=== PATIENT | male | born 1970 | race Caucasian/White ===

== ENCOUNTER 2017-11-01 17:13 | Emergency (ER) | payer MEDICAID ==
--- NOTE | 2017-11-01 17:55 | EDPHY ---
H & P Time Seen by Provider: 11/01/17 17:52 HPI/ROS: CHIEF COMPLAINT: The patient is a 46-year-old male here with 4 days of low back pain HISTORY OF PRESENT ILLNESS: 46-year-old male with no significant past medical history here with chief complaint of low back pain that has worsened over the last 4 days. 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 He did not fall but did report instant pain to the low back. It did not radiate at the time. He saw his primary care doctor the next day was started on muscle relaxers and pain medication. He is also started on prednisone. He has developed severe pain down his right leg and the pain is not improved with prednisone, tramadol, Flexeril, Valium. Denies loss control of bladder but does report 1 episode of incontinence of stool yesterday while driving in his car. This has never happened to him before. He states he was unable to control his bowels at the time. He denies any perianal numbness or weakness in his legs. Reports he is able to walk but this is painful. REVIEW OF SYSTEMS: Constitutional: No fever, no chills. Eyes: No discharge. ENT: No sore throat. Cardiovascular: No chest pain, no palpitations. Respiratory: No cough, no shortness of breath. Gastrointestinal: No abdominal pain, no vomiting. Genitourinary: No hematuria. Musculoskeletal: No back pain. Skin: No rashes. Neurological: No headache Smoking Status: Never smoked Physical Exam: General Appearance: Alert and no distress. Eyes: Pupils equal and round no injection. Respiratory: Chest is nontender, lungs are clear to auscultation. Cardiac: regular rate and rhythm. Gastrointestinal: Abdomen is soft and nontender, no masses, bowel sounds normal. Musculoskeletal: Neck is supple and nontender. Extremities have full range of motion and are nontender. Normal sensation and deep tendon reflexes in lower extremities Skin: No rashes or lesions. Constitutional: Initial Vital Signs Temperature (C) 36.4 C 11/01/17 17:15 Heart Rate 90 11/01/17 17:15 Respiratory Rate 16 11/01/17 17:15 Blood Pressure 112/92 H 11/01/17 17:15 O2 Sat (%) 96 11/01/17 17:15 O2 Delivery Mode Room Air Allergies/Adverse Reactions: No Known Allergies Allergy (Unverified 11/01/17 17:19) Home Medications: Medication Instructions Recorded Albuterol Sulfate [Proair Hfa] 8.5 gm IH 11/01/17 Cyclobenzaprine [Flexeril 10 MG 10 mg PO 11/01/17 (*)] Diazepam [Valium 5 MG (*)] 5 mg PO 11/01/17 Hydrocodone/APAP 5/325 [[place] 1 each PO Q6 #8 tab 11/01/17 5/325 (*)] Lidocaine [Lidoderm] 700 mg TP PRN PRN #1 adh..patch 11/01/17 PARoxetine HCL [Paxil 10mg (*)] 10 mg PO DAILY 11/01/17 predniSONE 5 mg PO 11/01/17 traMADol [Ultram 50 mg (*)] 50 mg PO 11/01/17 Medical Decision Making - Diagnostics Imaging Results: Imaging Impressions Lumbar Spine MRI 11/01/17 17:39 Impression: 1. Negative for compression of the conus medullaris and there is no canal stenosis to suggest cauda equina syndrome. 2. Disk degenerative changes and a mild disk bulge and minimal subligamentous disk herniation towards the right at L3-L4 with mild impingement on the lateral recess. 3. See above report for findings at specific levels. Results called to Ben PETERSON on 11/01/2017 at 18:53. ED Course/Re-evaluation: Patient here with pain radiating down the right leg after sudden movement approximately 1 week ago. There was concern for cauda equina as he did have incontinence of stool yesterday. MRI reveals bulging disc which explains his radicular pain. Patient will continue his medical regimen and follow up with Spine or neurosurgeon if he has continued pain. Patient is agreeable with this plan. Differential Diagnosis: Cauda equina, fracture, ligamentous instability, or epidural abscess - Data Points Laboratory Results: Laboratory Results 11/01/17 18:35 11/01/17 18:35 11/01/17 11/01/17 18:35 18:35 WBC 12.88 10^3/uL H 10^3/uL (3.80-9.50) RBC 4.57 10^6/uL 10^6/uL (4.40-6.38) Hgb 13.4 g/dL L g/dL (13.7-17.5) Hct 38.5 % L % (40.0-51.0) MCV 84.2 fL fL (81.5-99.8) MCH 29.3 pg pg (27.9-34.1) MCHC 34.8 g/dL g/dL (32.4-36.7) RDW 12.6 % % (11.5-15.2) Plt Count 204 10^3/uL 10^3/uL (150-400) Sodium 135 mEq/L mEq/L (135-145) Potassium 4.1 mEq/L mEq/L (3.3-5.0) Chloride 107 mEq/L mEq/L (97-110) Carbon Dioxide 26 mEq/l mEq/l (22-31) Anion Gap 2 mEq/L L mEq/L (8-16) BUN 13 mg/dL mg/dL (7-23) Creatinine 0.9 mg/dL mg/dL (0.7-1.3) Estimated GFR > 60 Glucose 104 mg/dL H mg/dL (70-100) Calcium 8.8 mg/dL mg/dL (8.5-10.4) Departure - Departure Disposition: Home, Routine, Self-Care Clinical Impression: Bulging lumbar disc, Lumbar radiculopathy, acute Condition: Good Instructions: Lumbar Radiculopathy (ED) Additional Instructions: Please follow up with her primary care physician in next 5-7 days if you do not have improvement of her symptoms. Referrals: ZULEYKA BAXTER [Primary Care Provider] - As per Instructions Prescriptions: Hydrocodone/APAP 5/325 [[place] 5/325 (*)] 1 each PO Q6 #8 tab Lidocaine [Lidoderm] 700 mg TP PRN PRN #1 adh..patch PRN Reason: *Pain, Inflammatory
[2017-11-01] MEDS ORDERED: GADOBUTROL 10 ML VIAL IVP ONE (17:57)
[2017-11-01 19:26] VITALS: BP 134/77
== END 2017-11-01 19:25 | disposition home or self-care (01) ==
DX: M51.26 Other intervertebral disc displacement, lumbar region (principal); M54.16 Radiculopathy, lumbar region
CPT/HCPCS: A9585

== ENCOUNTER 2018-03-24 20:08 | Emergency (ER) | payer MEDICAID ==
[2018-03-24 20:29] VITALS: BP 139/94
--- NOTE | 2018-03-24 20:37 | EDPHY ---
H & P Time Seen by Provider: 03/24/18 20:30 HPI/ROS: HPI Tooth pain. 47-year-old male by private vehicle. This patient reports that he has a chipped right lower tooth that has been causing him pain since February. He reports that it has gotten worse over the last several days. He was skiing over the weekend when the pain really increased. He reports that he called his dentist his dentist prescribed amoxicillin and he is scheduled for a root canal tomorrow. He presents to the emergency department complaining of pain that is uncontrolled with ibuprofen. He has not had a fever. He denies any facial swelling. No other complaints. ROS: Constitutional: No fever, no chills. No weakness. Eyes: No discharge. No changes in vision. ENT: No sore throat. No nasal congestion or rhinorrhea. As above. Musculoskeletal: No back pain. No neck pain. As above. Skin: No rashes. Neurological: No headache. No focal weakness or altered sensation. Past medical history: Anxiety, depression, asthma. Social history: Nonsmoker. No alcohol. Here by himself. Physical Exam: General Appearance: Alert, no distress. This patient is responding to questions appropriately and in full sentences. This patient appears well- hydrated and well-nourished. Eyes: Pupils equal and round no pallor or injection. No lid edema, erythema or injection. ENT, Mouth: Mucous membranes are moist. The pharyngeal tissues are unremarkable. No edema or swelling. No asymmetry suggestive of abscess. No erythema or exudates. He has a chipped right lower premolar. There is no significant gingival swelling. He does have some pain elicited on apical compression of the tooth. No purulent drainage. No acute dental trauma. No facial swelling or swelling of the buccal mucosa noted. No elevation of the tongue. No voice changes. No stridor on auscultation of his neck. Neurological: Motor sensory function is grossly intact. Cranial nerves are normal. Gait is normal. Skin: Warm and dry, no rashes. Musculoskeletal: Neck is supple and nontender. No cervical, submandibular, submental lymphadenopathy. Extremities are symmetrical. All joints range without pain or impingement. Psychiatric: No agitation. No depression. Database: EKG: Imaging: Procedures: Emergency department course: Triage vital signs reviewed and are unremarkable. Patient verbally consented for inferior alveolar nerve block on the right side. 2 cc of bupivacaine without epinephrine injected at the mandibular sulcus on the inner surface of the ramus. Patient had excellent relief of his pain. There were no complications during this procedure. The patient feels comfortable going home. I will send him home with a take-home pack of Vicodin as well for breakthrough pain later tonight and to get him through until he can have his root canal tomorrow. Return to emergency department precautions reviewed with him. All of his questions were answered. He was discharged in good condition. Differential Diagnosis: The differential diagnosis on this patient includes but is not limited to dental pain, apical abscess. Acute dental trauma, dry socket, osteomyelitis, Ronen's angina, facial cellulitis unlikely. This represents a partial list of diagnoses considered. These considerations are based on history, physical exam , past history, reassessment and diagnostic testing. Smoking Status: Never smoked Constitutional: Initial Vital Signs Temperature (C) 36.5 C 03/24/18 20:20 Heart Rate 73 03/24/18 20:20 Respiratory Rate 16 03/24/18 20:20 Blood Pressure 139/94 H 03/24/18 20:20 O2 Sat (%) 95 03/24/18 20:20 O2 Delivery Mode Room Air Allergies/Adverse Reactions: No Known Allergies Allergy (Verified 03/24/18 20:24) Home Medications: Medication Instructions Recorded Albuterol Sulfate [Proair Hfa] 8.5 gm IH 11/01/17 PARoxetine HCL [Paxil 10mg (*)] 10 mg PO DAILY 11/01/17 Departure - Departure Disposition: Home, Routine, Self-Care Clinical Impression: Toothache Condition: Good Instructions: Toothache (ED) Additional Instructions: Read and follow provided instructions. Follow-up with your dentist as scheduled tomorrow for definitive management. Ibuprofen dosin mg every 6 hours with meals for the next 3 days only. Take only as needed for pain. Narcotic pain medication dosin-2 every 4-6 hours as needed for pain. Do not drive while on this medication. Return to the emergency department for worsening or uncontrolled pain, facial swelling, fever or other serious concerns. Referrals: Woodrow Foy MD [Primary Care Provider] - As per Instructions Stand Alone Forms: Work Excuse
[2018-03-24] MEDS ORDERED: HYDROCOD/APAP 5/325 PREPACK#6 BTL TAKEHOME ONE (20:38)
== END 2018-03-24 20:50 | disposition home or self-care (01) ==
LOC: CED 20:08
PROC: 3E0X3BZ Introduction of Anesthetic Agent into Cranial Nerves, Percutaneous Approach (ICD-10-PCS; principal; 2018-03-24)
DX: K08.89 Other specified disorders of teeth and supporting structures (principal)

== ENCOUNTER 2018-07-20 09:44 | Emergency (ER) | payer MEDICAID ==
--- NOTE | 2018-07-20 10:03 | EDPHY ---
H & P Stated Complaint: [facility]/ski inj yested[place] Time Seen by Provider: 07/20/18 09:55 HPI/ROS: CHIEF COMPLAINT: Right shoulder pain HISTORY OF PRESENT ILLNESS: The patient is a 47-year-old man who states that he fell skiing yesterday. He landed on the anterior aspect of his right shoulder with his arm at his side. He has had pain ever since. He does not think that was dislocated. He presented to the urgent care this morning or an x -ray was done in whose felt to have a shoulder dislocation referred here to the ER. He was placed in a sling. He denies other injuries. No neck pain. Severity: Mild Modifying factors: Improved with sling REVIEW OF SYSTEMS: Constitutional: denies: chills, fever, recent illness, recent injury EENTM: denies: blurred vision, double vision, nose congestion Respiratory: denies: cough, shortness of breath Cardiac: denies: chest pain, irregular heart rate, lightheadedness, palpitations Gastrointestinal/Abdominal: denies: abdominal pain, diarrhea, nausea, vomiting, blood streaked stools Genitourinary: denies: dysuria, frequency, hematuria, pain Musculoskeletal: See HPI Skin: denies: lesions, rash, jaundice, bruising Neurological: denies: headache, numbness, paresthesia, tingling, dizziness, weakness Hematologic/Lymphatic: denies: blood clots, easy bleeding, easy bruising Immunologic/allergic: denies: HIV/AIDS, transplant 10 systems reviewed and negative except as noted EXAM: GENERAL: Well-appearing, well-nourished and in no acute distress. HEAD: Atraumatic, normocephalic. EYES: Pupils equal round and reactive to light, extraocular movements intact, sclera anicteric, conjunctiva are normal. ENT: TMs normal, nares patent, oropharynx clear without exudates. Moist mucous membranes. NECK: Normal range of motion, supple without lymphadenopathy or JVD. LUNGS: Breath sounds clear to auscultation bilaterally and equal. No wheezes rales or rhonchi. HEART: Regular rate and rhythm without murmurs, rubs or gallops. ABDOMEN: Soft, nontender, normoactive bowel sounds. No guarding, no rebound. No masses appreciated. BACK: No CVA tenderness, no spinal tenderness, step-offs or deformities EXTREMITIES: Right shoulder pain, some limited range of motion due to pain. No step-off or deformity. No paresthesias numbness or weakness. NEUROLOGICAL: Cranial nerves II through XII grossly intact. Normal speech, normal gait. 5/5 strength, normal movement in all extremities, normal sensation , normal reflexes PSYCH: Normal mood, normal affect. SKIN: Warm, dry, normal turgor, no visible rashes or lesions. Source: Patient Exam Limitations: No limitations - Personal History Current Tetanus Diphtheria and Acellular Pertussis (TDAP): Yes - Medical/Surgical History Hx Asthma: Yes Hx Chronic Respiratory Disease: No Hx Diabetes: No Hx Cardiac Disease: No Hx Renal Disease: No Hx Cirrhosis: No Hx Alcoholism: No Hx HIV/AIDS: No Hx Splenectomy or Spleen Trauma: No Other PMH: anxiety, depression, asthma. lap band - Family History Significant Family History: No pertinent family hx - Social History Smoking Status: Never smoked Constitutional: Initial Vital Signs Temperature (C) 36.6 C 07/20/18 09:48 Heart Rate 77 07/20/18 09:48 Respiratory Rate 16 07/20/18 09:48 Blood Pressure 135/91 H 07/20/18 09:48 O2 Sat (%) 98 07/20/18 09:48 O2 Delivery Mode Room Air Allergies/Adverse Reactions: No Known Allergies Allergy (Verified 07/20/18 09:48) Home Medications: Medication Instructions Recorded Albuterol Sulfate [Proair Hfa] 8.5 gm IH 11/01/17 PARoxetine HCL [Paxil 10mg (*)] 10 mg PO DAILY 11/01/17 Hydrocodone/APAP 5/325 [[place] 1 - 2 tab PO Q4H PRN #10 tab 07/20/18 5/325 (RX)] Medical Decision Making ED Course/Re-evaluation: I reviewed the x-rays and the radiology reading done at the urgent care. The patient does not have a shoulder dislocation. He has a possible glenoid fossa fracture. It is not displaced. Discussed which includes sling and pain control and follow up with Orthopedics. He is happy with this and declines further workup or testing at this time. Differential Diagnosis: Partial list of the Differential diagnosis considered include but were not limited to; shoulder dislocation, AC separation, fracture and although unlikely based on the history and physical exam, I also considered nerve injury , vascular injury. I discussed these differential diagnoses and the plan with the patient as well as the usual and expected course. The patient understands that the diagnosis is provisional and that in medicine we are not always correct and that further workup is often warranted. Usual and customary warnings were given. All of the patient's questions were answered. The patient was instructed to return to the emergency department should the symptoms at all worsen or return, otherwise to followup with the physician as we discussed. Departure - Departure Disposition: Home, Routine, Self-Care Clinical Impression: Fracture of glenoid cavity of right scapula Qualifiers: Encounter type: initial encounter Fracture type: closed Fracture alignment: nondisplaced Qualified Code(s): S42.144A - Nondisplaced fracture of glenoid cavity of scapula, right shoulder, initial encounter for closed fracture Condition: Fair Instructions: Scapular Fracture (ED) Referrals: Woodrow Foy MD [Primary Care Provider] - As per Instructions Rodney Paul MD [Medical Doctor] - 5-7 days, call for appt. Prescriptions: Hydrocodone/APAP 5/325 [[place] 5/325 (RX)] 1 - 2 tab PO Q4H PRN #10 tab PRN Reason: Pain, Moderate
[2018-07-20 10:11] VITALS: BP 133/89
== END 2018-07-20 10:12 | disposition home or self-care (01) ==
DX: S42.144A Nondisplaced fracture of glenoid cavity of scapula, right shoulder, initial encounter for closed fracture (principal); F32.9 Major depressive disorder, single episode, unspecified; F41.8 Other specified anxiety disorders; J45.909 Unspecified asthma, uncomplicated; V00.321A Fall from snow-skis, initial encounter; Y93.23 Activity, snow (alpine) (downhill) skiing, snowboarding, sledding, tobogganing and snow tubing; Y92.828 Other wilderness area as the place of occurrence of the external cause